=== PATIENT | male | born 1945 | race African-American/Black ===

== ENCOUNTER 2021-06-11 04:16 | Day surgery (SDC) | payer OTHER ==
[2021-06-09 17:39] VITALS: BMI 23.7
[2021-06-11] MEDS ORDERED: BUPIVACAINE HCL/PF 0.5% (5MG/ML) 10 ML VIAL ONE (12:26)
[2021-06-11] MEDS ORDERED: LIDOCAINE HCL 1%, 10 MG/ML (20ML VIAL) ONE (12:27)
[2021-06-11] MEDS ORDERED: MIDAZOLAM HCL 2 MG/2 ML SINGLE DOSE VIAL ONE (12:31)
[2021-06-11] MEDS ORDERED: PROPOFOL 20 ML ONE ×3 (12:31)
[2021-06-11] MEDS ORDERED: ONDANSETRON 4 MG/2 ML VIAL IVPUSH PRN (12:36)
[2021-06-11] MEDS ORDERED: LACTATED RINGERS SOLUTION 1,000 ML IV SCH (12:45)
[2021-06-11] MEDS ORDERED: ceFAZolin 2 GRAM PREMIX BAG IVPB ONE (13:00)
[2021-06-11] MEDS ORDERED: BUPIVACAINE HCL/PF 0.5% (5MG/ML) 10 ML VIAL IJ ONE (13:05)
[2021-06-11] MEDS ORDERED: LIDOCAINE HCL 1%, 10 MG/ML (20ML VIAL) NR ONE (13:05)
[2021-06-11] MEDS ORDERED: NEOSTIGMINE METHYLSULFATE 0.5 MG/ML - 10 ML MDV ONE (13:43)
[2021-06-11] MEDS ORDERED: BENZOIN/ALOE VERA/STORAX/TOLU 58 ML BOTTLE TP ONE ×2 (13:44→13:46)
[2021-06-11] MEDS ORDERED: oxyCODONE HCL 5 MG TABLET PO ONE (16:09)
[2021-06-11] MEDS ORDERED: oxyCODONE HCL 5 MG TABLET ONE (16:11)
[2021-06-11] MEDS ORDERED: ONDANSETRON 4 MG/2 ML VIAL ONE (16:43)
[2021-06-11 18:14] VITALS: BP 134/91; PULSE 70; TEMP 98
== END 2021-06-11 18:32 | disposition home or self-care (01) ==
LOC: JASU-SURG 04:16
PROVIDERS: ATTEND Surgery
PROC: 0WQF0ZZ Repair Abdominal Wall, Open Approach (ICD-10-PCS; principal; 2021-06-11 11:30)
DX: K42.9 Umbilical hernia without obstruction or gangrene (principal)
CPT/HCPCS: 88302-TC; 94760